=== PATIENT | male | born 1955 | race Caucasian/White ===

== ENCOUNTER 2018-02-09 11:07 | Emergency (ER) | payer MEDICARE, OTHER ==
[2018-02-09] MEDS ORDERED: Aspirin 81 MG Tab.Chew PO ONE (11:21)
--- NOTE | 2018-02-09 11:26 | EDM.PDOC ---
ED HPI GENERAL MEDICAL PROBLEM - General Chief Complaint: Chest Pain Stated Complaint: CP CAME FROM CLINIC Time Seen by Provider: 02/09/18 11:10 Source of Information: Reports: Patient History Limitations: Reports: No Limitations - History of Present Illness INITIAL COMMENTS - FREE TEXT/NARRATIVE: Carlos is a 62 yo male who presented to the clinic initially with complaints of chest pain. He states around 11:30 yesterday evening he woke up sweaty and his left arm was aching. He states he had his arm tucked up underneath him and felt the pain was from sleeping wrong. States he stretched it out and that seemed to improve but had a knot in his chest. States he wasn't able to go back to sleep. Around 3:30 this morning he was able to get some rest. States around 6 :00 this morning the discomfort in his chest had improved. Admits he didn't eat anything as he had some fasting lab work this morning for an upcoming cardiology appointment. States afterwards he thought if he ate something it would make it better and went up to the [facility]. States he had a sausage joshua, pancake and egg around 8:00am. Admits to no relief after eating. (He has been seen in the clinic recently for a preoperative exam for upcoming hydrocele repair. He was not cleared d/t concerns of atrial flutter and we proceeded to set him up with cardiology). Onset Date: 02/08/18 Onset Time: 23:30 Duration: Constant, Improving Location: Reports: Chest, Abdomen Improves with: Reports: None Worsens with: Reports: None Chest Pain Score (Numeric/FACES): 8 - Related Data Allergies Allergy/AdvReac Type Severity Reaction Status Date / Time lisinopril Allergy Edema Verified 09/25/16 11:01 Home Meds: Home Meds Multivitamin [Multivitamins] 1 each PO DAILY 09/25/16 [History] Aspirin [Adult Low Dose Aspirin EC] 81 mg PO 02/09/18 [History] Metoprolol Tartrate 25 mg PO BID 02/09/18 [History] Past Medical History Cardiovascular History: Reports: Hypertension Gastrointestinal History: Reports: GERD Genitourinary History: Reports: Other (See Below) (hydrocele) Social & Family History - Family History Family Medical History: Noncontributory - Tobacco Use Smoking Status *Q: Current Every Day Smoker Years of Tobacco use: 40 Packs/Tins Daily: 1 - Alcohol Use Number of Drinks Per Day: 2 - Recreational Drug Use Recreational Drug Use: No ED ROS GENERAL - Review of Systems Review Of Systems: See Below Constitutional: Reports: Chills, Weakness, Fatigue, Night Sweats. Denies: Fever HEENT: Reports: No Symptoms Respiratory: Reports: Shortness of Breath (worse yesterday). Denies: Wheezing, Cough Cardiovascular: Reports: Chest Pain, Blood Pressure Problem, Dyspnea on Exertion , Edema, Lightheadedness. Denies: Palpitations, Syncope GI/Abdominal: Reports: Abdominal Pain, Nausea. Denies: Bloody Stool, Constipation, Diarrhea, Vomiting Musculoskeletal: Reports: No Symptoms, Arm Pain (ached last night, gone this morning. ). Denies: Shoulder Pain Skin: Reports: No Symptoms Neurological: Reports: Dizziness, Headache Psychiatric: Reports: No Symptoms ED EXAM, GENERAL - Physical Exam Exam: See Below Exam Limited By: No Limitations General Appearance: Alert, Mild Distress Head: Atraumatic, Normocephalic Neck: Normal Inspection Respiratory/Chest: Decreased Breath Sounds. No: Respiratory Distress, Rhonchi, Accessory Muscle Use Cardiovascular: No Murmur, No Rub, Tachycardia Peripheral Pulses: 0: Dorsalis Pedis (L), Dorsalis Pedis (R), 1+: Radial (L), Radial (R) GI/Abdominal: Normal Bowel Sounds, Soft, Non-Tender, No Organomegaly, Other ( obese). No: Guarding, Rigid Extremities: Pedal Edema (3+, left worse than right (chronic)) Neurological: Alert, Oriented, No Motor/Sensory Deficits Psychiatric: Normal Affect, Normal Mood Skin Exam: Warm, Dry, Intact, Normal Color, No Rash EKG INTERPRETATION EKG Date: 02/09/18 Time: 11:10 Rhythm: Other (Tachycardia) Rate (Beats/Min): 101 Comparison: No Change Course - Vital Signs Last Recorded V/S: Last Vital Signs Temp 97.4 F 02/09/18 11:10 Pulse 95 02/09/18 12:11 Resp 20 02/09/18 11:10 BP 156/93 H 02/09/18 12:21 Pulse Ox 99 02/09/18 11:52 - Orders/Labs/Meds Orders: Active Orders 24 hr Category Date Time Status Oxygen Therapy, ED [RC] ASDIRECTED Care 02/09/18 12:11 Active Chest 2V [CR] Stat Exams 02/09/18 11:13 Ordered Labs: Laboratory Tests 02/09/18 02/09/18 02/09/18 Range/Units 11:25 11:25 11:25 WBC 8.4 (5.0-10.0) 10^3/uL RBC 4.40 L (4.50-6.00) 10^6/uL Hgb 14.9 (14.0-18.0) g/dL Hct 44.1 (40.0-54.0) % MCV 100.2 H (82.0-94.0) fL MCH 33.9 H (27.0-32.0) pg MCHC 33.8 (33.0-38.0) g/dL RDW Coeff of Skyler 12.7 (11.0-15.0) % Plt Count 192 (150-400) 10^3/uL Neut % (Auto) 67.0 (35-85) % Lymph % (Auto) 21.3 (10-55) % Simpson % (Auto) 9.6 (0-16) % Eos % (Auto) 1.9 (0-5) % Baso % (Auto) 0.2 (0-3) % Neut # (Auto) 5.59 (1.80-7.00) 10^3/uL Lymph # (Auto) 1.78 (1.00-4.80) 10^3/uL Simpson # (Auto) 0.80 (0.00-0.80) 10^3/uL Eos # (Auto) 0.16 (0.00-0.45) 10^3/uL Baso # (Auto) 0.02 10^3/uL PT 9.8 (9.7-12.3) SEC INR 0.94 (0.92-1.18) APTT 26.1 (23.2-32.3) SEC D-Dimer, Quantitative 0.30 (0.00-0.50) Sodium 140 (136-145) mEq/L Potassium 3.9 (3.5-5.0) mEq/L Chloride 100 (98-106) mEq/L Carbon Dioxide 31 (21-32) mmol/L BUN 17 (7-18) mg/dL Creatinine 0.9 (0.7-1.3) mg/dL Est Cr Clr Drug Dosing TNP Estimated GFR (MDRD) > 60 (>=60) mL/min Glucose 138 H (75-99) mg/dL Calcium 8.8 (8.4-10.1) mg/dL Lactate Dehydrogenase 207 H (100-190) U/L Creatine Kinase 189 (35-232) U/L Troponin I < 0.017 (0.00-0.06) ng/mL Meds: Medications Discontinued Medications Generic Name Dose Route Start Last Admin Trade Name Deacon PRN Reason Stop Dose Admin Aspirin 324 mg 02/09/18 11:21 02/09/18 11:21 Aspirin PO 02/09/18 11:22 324 mg ONETIME ONE Administration Nitroglycerin 0.4 mg 02/09/18 11:43 02/09/18 11:43 Nitrostat SL 02/09/18 11:44 0.4 mg ONETIME ONE Administration Departure - Departure Time of Disposition: 12:34 Disposition: Home, Self-Care 01 Clinical Impression: Atypical chest pain, Epigastric burning sensation Instructions: Nonspecific Chest Pain, [id number], Abdominal Pain, Adult, Easy -to-Read Forms: ED Department Discharge Additional Instructions: 1) Need to increase Metoprolol to 25 mg twice a day. 2) Recheck in clinic tomorrow after Holter monitor is off 3) Protonix 40mg daily for epigastric discomfort 4) Need to take Lasix as directed as well. 5) Holter monitor directions given by radiology 6) Rest and relax today, if pain worsens, advise returning to ER. - Problem List & Annotations (1) Atypical chest pain SNOMED Code(s): 492822052 Code(s): R07.89 - OTHER CHEST PAIN Status: Acute (2) Epigastric burning sensation SNOMED Code(s): 56100685 Code(s): R10.13 - EPIGASTRIC PAIN Status: Acute - Problem List Review Problem List Initiated/Reviewed/Updated: Yes - My Orders Last 24 Hours: My Active Orders 02/09/18 11:13 Chest 2V [CR] Stat 02/09/18 12:11 Oxygen Therapy, ED [RC] ASDIRECTED - Assessment/Plan Last 24 Hours: My Active Orders 02/09/18 11:13 Chest 2V [CR] Stat 02/09/18 12:11 Oxygen Therapy, ED [RC] ASDIRECTED Plan: Consulted with Dr. Sonny Romeo in regards to Carlos's condition. Will get Holter monitor today with follow up tomorrow. Will look into why his cardiology appointment wasn't set up until yesterday.
[2018-02-09 11:42] LABS: CHLORIDE,CL 100 mEq/L (98-106); SODIUM,NA 140 mEq/L (136-145)
[2018-02-09] MEDS ORDERED: Nitroglycerin 0.4 MG Tab.SL SL ONE (11:43)
[2018-02-09 12:22] VITALS: BP 156/93
== END 2018-02-09 12:55 | disposition home or self-care (01) ==
LOC: CC.ED 11:07
DX: R07.89 Other chest pain (principal); R10.13 Epigastric pain; I10 Essential (primary) hypertension; Z88.8 Allergy status to other drugs, medicaments and biological substances; Z79.899 Other long term (current) drug therapy
CPT/HCPCS: 36415; 71046; 80048; 82550; 83615; 84484; 85025; 85379; 85610; 85730; 87804; 93005; 93225; 93226; 99285; A9270-GY

== ENCOUNTER 2022-04-19 02:41 | Emergency (ER) | payer MEDICARE, OTHER ==
[2022-04-19] MEDS ORDERED: Albuterol/Ipratropium 3.0-0.5 MG/3 ML Neb Soln NEB ONE (02:54)
[2022-04-19 03:38] VITALS: BP 100/61; PULSE 57
[2022-04-19] MEDS ORDERED: cefTRIAXone 1 GM Vial IVPUSH ONE (03:47)
[2022-04-19] MEDS ORDERED: methylPREDNISolone Sodium Succinate 125 MG/2 ML SDV IVPUSH STA (03:47)
[2022-04-19] MEDS ORDERED: Albuterol 8 GM Inhaler INH PRN (04:05)
== END 2022-04-19 04:40 | disposition home or self-care (01) ==
LOC: CC.ED 02:41
DX: J44.9 Chronic obstructive pulmonary disease, unspecified (principal); J20.9 Acute bronchitis, unspecified; J01.01 Acute recurrent maxillary sinusitis; K21.9 Gastro-esophageal reflux disease without esophagitis; Z88.8 Allergy status to other drugs, medicaments and biological substances; Z79.899 Other long term (current) drug therapy
CPT/HCPCS: 36415; 71046; 80053; 83880; 84484; 85025; 86140; 87804; 93005; 94640; 96374; 96375; 99284; 99285-25; A9270-GY; J0696; J2930; J7620-GY; U0002

== ENCOUNTER → 2024-04-13 | Day surgery (SDC) | payer MEDICARE ==
[2024-04-13 11:02] VITALS: BP 139/65; PULSE 65
[2024-04-13] MEDS: Lidocaine 1% 5 ML VIAL INJECT ONE (12:07)
== END ==
LOC: CC.SDS 10:44
PROVIDERS: ATTEND Family Medicine
DX: I87.2 Venous insufficiency (chronic) (peripheral) (principal); I83.92 Asymptomatic varicose veins of left lower extremity; J44.1 Chronic obstructive pulmonary disease with (acute) exacerbation; I10 Essential (primary) hypertension; K21.9 Gastro-esophageal reflux disease without esophagitis; E78.5 Hyperlipidemia, unspecified; F41.9 Anxiety disorder, unspecified; Z88.8 Allergy status to other drugs, medicaments and biological substances; Z79.899 Other long term (current) drug therapy
CPT/HCPCS: C1888; J3490

== ENCOUNTER → 2024-05-11 | Day surgery (SDC) | payer MEDICARE ==
[~2024-05-11] MED LIST: Lidocaine 1% 30 ML SDV ONE
[2024-05-11 11:37] VITALS: BP 158/65; PULSE 70
[2024-05-11] MEDS: Lidocaine 1% 30 ML SDV INJECT ONE ×2 (11:55→12:16)
== END ==
LOC: CC.SDS 10:59
PROVIDERS: ATTEND Family Medicine
DX: I87.2 Venous insufficiency (chronic) (peripheral) (principal); J44.9 Chronic obstructive pulmonary disease, unspecified; K21.9 Gastro-esophageal reflux disease without esophagitis; I10 Essential (primary) hypertension; E78.5 Hyperlipidemia, unspecified; G47.30 Sleep apnea, unspecified; F17.210 Nicotine dependence, cigarettes, uncomplicated; Z79.82 Long term (current) use of aspirin; Z79.899 Other long term (current) drug therapy; Z88.5 Allergy status to narcotic agent; Z88.8 Allergy status to other drugs, medicaments and biological substances
CPT/HCPCS: C1888; J3490